=== PATIENT | female | born 1995 | race Caucasian/White ===

== ENCOUNTER 2020-10-18 13:49 | Inpatient (IN) | payer SELFPAY ==
[~2020-10-18] VITALS: Ht 162.6 cm; Wt 65.5 kg
[2020-10-18] VITALS (24 sets, daily range): BP systolic 96–144; BP diastolic 55–88; PULSE 71–111; TEMP 97.7–98.8
--- NOTE | 2020-10-18 13:50 | NUR ---
Admits to L&D for induction of labor, as sent over from office with finding on US of MEHUL 5. Accompanied by spouse Charlie.
--- NOTE | 2020-10-18 14:20 | NUR ---
here. Discusses with patient plan of care. Discusses increased risk for primary ceserean section given only 38 weeks, first , unfavorable cervix, and low MEHUL. Patient verbalizes understanding. tells patient she may order something to eat, since she did not get to eat prior to arrival.
--- NOTE | 2020-10-18 14:40 | NUR ---
Initial dose Cytotec 50 mcg administered orally per verbal order.
[2020-10-18 14:45] LABS: BASO % 0.3 % (0.0-2.0); EOS # 0.1 (0.0-0.7); EOS % 0.7 % (0-4.0); GRAN % 65.9 % (42.2-75.2); HEMATOCRIT 37.2 % (37.0-47.0); HEMOGLOBIN 12.5 g/dl (12.5-16.0); LYMPH # 1.7 (1.2-3.4); LYMPH % 22.7 % (20.0-51.0); MEAN CELL VOLUME 86 fl (80.0-100.0); MEAN CORPUSCULAR HEMOGLOBIN 29 pg (27.0-31.0); MEAN CORPUSCULAR HGB CONC 34 g/dl (33.0-37.0); MEAN PLATELET VOLUME 9.7 fl (7.4-10.4); MONO # 0.8 (0.1-0.6); MONO % 9.9 % (1.7-9.3); PLATELET COUNT 272 K/mm3 (130-400); RED BLOOD COUNT 4.35 M/mm3 (4.10-5.30)
[2020-10-18] MEDS ORDERED: ALLEGRA 180MG180 MG PO (14:59)
[2020-10-18] MEDS ORDERED: SYNTHROID0.075 MG/T (15:02)
[2020-10-18] MEDS ORDERED: PRENATAL TABLET PO (15:02)
--- NOTE | 2020-10-18 19:25 | NUR ---
1924- DR. MOELLER TO BEDSIDE TO DISCUSS MANAGEMENT OPTIONS FOR INDUCTION WITH PATIENT. DISCUSSED RISK AND BENEFITS OF PITICON, PITOCIN AND COOK BALLOON, OR PRIMARY SECTION. PATIENT VERBALIZED WANTING TO DO PITOCIN AND COOK BALLOON. 1929- PATIENT UP TO BATHROOM BEFORE PLACEMENT OF COOK BALLOON. 1937- PATIENT BACK IN BED AND ON THE MONITORS. THIS RN AND PROVIDER BACK TO BEDSIDE FOR PLACEMENT OF COOK BALLOON. 1942- PROVIDER 1ST ATTEMPT AT PLACING COOK BALLOON BY MANUAL FEEL. PATIENT TOLERATED WELL, PROVIDER VOICED NEEDED TO USE SPECULUM TO PLACE IT INSTEAD. PATIENT VERABLIZED UNDERSTANDING AND AGREED TO CONTINUE WITH SPECULUM. 1952- PROVIDER AND THIS RN BACK IN ROOM TO PLACE COOK BALLOON WITH ASSIST FROM SPECULUM/VISUAL. PROVIDER PLACED COOK BALLOON AND INSTEAD 80CC INTO BOTH UTERINE AND VAGINAL BALLOON. PATIENT TOELRATED WELL. PATIENT SAT BACK UP AND BALLOON TAPED TO SIDE OF LEG WITH SOME TENSION BY THIS RN. 1999- DISCUSSED WITH PROVIDER WHAT HE WOULD LIKE FOR THE NIGHT. PROVIDER DOES NOT WANT TO GO ABOVE 10MU OF PITOCIN TONIGHT. HE ADVISE THAT IF HER WATER BREAKS WITH COOK BALLOON IN TO DEFLATE BALLOONS, STARTING WITH GREEN PORT, AND LET THE BALLOON FALL OUT AFTER DEFLATING. ADVISED SHE CAN HAVE AN EPIDURAL WHENEVER SHE WOULD LIKE ONE AND TO CALL HIM IF NEEDED OR I HAD ANY QUESTIONS. THIS RN VERBALIZED UNDERSTANDING AND REPEATED ORDERS BACK TO PROVIDER.
[2020-10-19] VITALS (80 sets, daily range): BP systolic 12–145; BP diastolic 55–96; PULSE 67–133; TEMP 98–99.3
--- NOTE | 2020-10-19 06:30 | NUR ---
Stands up at bedside. Denies any needs at this time. Spouse at bedside.
--- NOTE | 2020-10-19 09:45 | NUR ---
0921- RN called to bedside. Dr Emery follows. Pt states she had a BM and is now feeling intense vaginal pressure. Pt back to bed. 4394- Zambrano baloon removed by Dr Emery with slight tension. SVE /-2, intact. Discussed pain control and AROM, questions answered. Pt ready for epidural when available.
--- NOTE | 2020-10-19 10:30 | NUR ---
Assumed care of patient. Stands in the bathroom putting make up on. Let her know that anesthesia is here. To bed, sits up in bed. Space obtained by anesthesia Misti. 1041 Catheter placed and single shot given by anesthesia. 1043 Test dose given by anesthesia.
--- NOTE | 2020-10-19 11:00 | NUR ---
Lies down after epidural. Having some variables down in the 90s-100s with accelerations noted. Repositioned to right side. Strip showed to Dr. Emery.
--- NOTE | 2020-10-19 11:37 | NUR ---
Zambrano catherer placed per sterile technique, moderate amount of clear yellow urine noted. Elida-care given and new pad placed.
--- NOTE | 2020-10-19 14:00 | NUR ---
Dr. Emery at bedside. Orders to decrease pitocin to 10 sonya units. 1405 Pitocin off, o28L on. Repositioned in bed.
--- NOTE | 2020-10-19 15:00 | NUR ---
Orders to turn pitocin back on by Dr. Emery. Pitocin started at 2 sonya units.
--- NOTE | 2020-10-19 16:15 | NUR ---
Monitor strip shown to Dr. Emery with late decels. States not to increase pitocin.
--- NOTE | 2020-10-19 17:00 | NUR ---
1705 heart tones down in the nintys for 80 seconds then back up to 120s with accelerations noted. Strip shown to Dr. Emery. No new orders.
--- NOTE | 2020-10-19 18:05 | NUR ---
Dr. Emery here, vag exam done. Reports dilated to nine. Repositioned patient. Oxygen on 8L per Dr. Emery.
--- NOTE | 2020-10-19 19:38 | NUR ---
1937: AT BEDSIDE. SVE/COMPLETE AND READY TO BEGIN PUSHING. PT EDUCATED ON PUSHING AND THIS NURSE BEGINS COACHING. PT MOVING HEAD WELL. GREAT PUSHING EFFORTS. REMAINS ON UNIT. 1999: AT BEDSIDE, BEGINS PUSHING WITH PATIENT. ORDERS TO BREAK BED DOWN TO PREPARE FOR DELIVERY. 2022: OF VIABLE MALE PER . CORD CLAMPED X2 AND CUT BY FOB. TO WARMER FOR DELAYED CRYING EFFORTS. CARE ASSUMED BY BHAVESH PRESLEY. 2035: OF PLACENTA. PITOCIN STARTED PER PROTOCOL. BEGINS REPAIR OF 2ND DEGREE PERINEAL LACERATION. LOCHIA WNL. FUNDUS FIRM AT UMBILICUS. PT DENIES PAIN WITH REPAIR.
[2020-10-20 01:30] VITALS: BP 101/66; PULSE 88
[2020-10-20 03:15] VITALS: BP 111/64; PULSE 80; TEMP 97.9
--- NOTE | 2020-10-20 03:15 | NUR ---
PT REPORTS FULL SENSATION TO BLE. ABLE TO RAISE AND HOLD LEGS X5 SECONDS EACH. ABLE TO BEAR WEIGHT. AMBULATORY TO RESTROOM FOR PP CARES. ASSISTED WITH DANIEL CARE, NEW GOWN/UNDERWEAR/PAD ON. LOCHIA SCANT. NO CLOTS. VITAL SIGNS STABLE. EPIDURAL CATHETER REMOVED FROM BACK PER PROTOCOL. ASSISTED TO ROOM 207 VIA WHEELCHAIR TO CONTINUE PP CARES. INFANT REMAINS IN ROOM UPON EXITING. CALL LIGHT WITHIN REACH. DENIES FURTHER NEEDS AT THIS TIME.
[2020-10-20 07:15] VITALS: BP 105/74; PULSE 80; TEMP 97.2
--- NOTE | 2020-10-20 07:15 | NUR ---
Rests in bed, alert. Ibuprofen 600 mg, tylenol 1000 mg given as ordered. Ambulates to the bathroom. Tolerates well.
[2020-10-20 07:25] LABS: HEMATOCRIT 31.5 % (37.0-47.0)
[2020-10-20 07:27] LABS: HEMOGLOBIN 10.5 g/dl (12.5-16.0)
[2020-10-20 12:00] VITALS: BP 107/65; PULSE 82; TEMP 97.5
--- NOTE | 2020-10-20 14:30 | NUR ---
Rests in bed, alert. Ibuprofen 600 mg, tylenol 1000 mg given per request and as ordered.
[2020-10-20 20:30] VITALS: BP 107/70; PULSE 73; TEMP 97.9
[2020-10-21 07:38] VITALS: BP 108/64; PULSE 76; TEMP 98.1
[2020-10-21] MEDS ORDERED: IBU600 MG PO (08:56)
--- NOTE | 2020-10-21 12:40 | NUR ---
Initial visit; Parents thanked Cardiology Nurse for offering congratulations and God's blessings for the of their son. Cardiology Nurse thanked family for choosing [facility].
== END 2020-10-21 15:15 | disposition home or self-care (01) | DRG 807 ==
LOC: OB 13:49 → LDR 13:50 → OB 13:50 → LDR 14:26 → OB 14:26
PROVIDERS: Obstetrics & Gynecology; ADMIT Obstetrics & Gynecology
PROC: 10E0XZZ Delivery of Products of Conception, External Approach (ICD-10-PCS; principal; 2020-10-19)
PROC: 0KQM0ZZ Repair Perineum Muscle, Open Approach (ICD-10-PCS; 2020-10-19)
PROC: 10907ZC Drainage of Amniotic Fluid, Therapeutic from Products of Conception, Via Natural or Artificial Opening (ICD-10-PCS; 2020-10-19)
PROC: 3E033VJ Introduction of Other Hormone into Peripheral Vein, Percutaneous Approach (ICD-10-PCS; 2020-10-19)
DX: O41.03X0 Oligohydramnios, third trimester, not applicable or unspecified (principal); Z37.0 Single live birth; O99.284 Endocrine, nutritional and metabolic diseases complicating childbirth; O70.1 Second degree perineal laceration during delivery; Z3A.38 38 weeks gestation of pregnancy; E03.9 Hypothyroidism, unspecified
CPT/HCPCS: J2590; J7120